=== PATIENT | female | born 1970 | race Caucasian/White ===

== ENCOUNTER 2018-12-04 15:59 | Emergency (ER) | payer OTHER ==
[~2018-12-04] VITALS: Ht 149.9 cm; Wt 61.3 kg
[~2018-12-04 15:59] MED LIST: CYCL10TA7 PO; IBUP-1542 PO
[2018-12-04 16:06] VITALS: Ht 149.9 cm; Wt 61.3 kg
[2018-12-04] MEDS ORDERED: KETOROLAC 15 MG INJ IV STA (16:42)
[2018-12-04] MEDS ORDERED: LORAZEPAM 2 MG INJ IV ONE (17:00)
[2018-12-04] MEDS ORDERED: IOHEXOL 300MG/ML 150 ML BTL ONE (18:01)
[2018-12-04] MEDS ORDERED: SOD CHLORIDE 0.9% 100 ML ONE (18:01)
[2018-12-04 19:40] VITALS: BP 125/83; PULSE 81; RESP 18
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
== END 2018-12-04 19:42 | disposition home or self-care (01) ==
LOC: FTE 15:59
DX: M79.601 Pain in right arm (principal); M79.604 Pain in right leg; R10.9 Unspecified abdominal pain; R07.9 Chest pain, unspecified
CPT/HCPCS: 71260; 73060; 73080; 73550; 73562; 73590; 74177; 80053; 81025; 85025; 93971; 96374; 96375; J1885; J2060; Q9967; Z7502; Z7610; 73552